=== PATIENT | female | born 1950 | race Caucasian/White ===

== ENCOUNTER → 2016-10-30 | Outpatient (CLI) | payer OTHER, BC ==
[~2016-10-30] MED LIST: ASPCH81X PO; ASPI81TA28 PO; CALC-393 PO; CMD4 PO; LPT10 PO; MAGN400T6 PO; METO25TA56 PO; MULT-506 PO; VTMD1000 PO; WARF2TAB PO; WARF4TAB PO
== END | disposition home or self-care (01) ==
LOC: C.PAPS 15:15
PROVIDERS: ATTEND Obstetrics & Gynecology
DX: Z12.4 Encounter for screening for malignant neoplasm of cervix (principal); N95.2 Postmenopausal atrophic vaginitis

== ENCOUNTER 2017-02-09 14:43 | Emergency (ER) | payer OTHER, BC ==
[~2017-02-09] VITALS: Ht 160 cm; Wt 112.0 kg
[~2017-02-09 14:43] MED LIST changes: -ASPI81TA28 PO; -LPT10 PO; -MULT-506 PO; -WARF2TAB PO; -WARF4TAB PO
[2017-02-09 14:53] VITALS: TEMP 37.5; Ht 160 cm; Wt 112.0 kg
[2017-02-09] MEDS ORDERED: ACETAMINOPHEN 500 MG TAB PO STA (15:18)
[2017-02-09] MEDS ORDERED: WARF2TAB PO (15:36)
[2017-02-09] MEDS ORDERED: LPT10 PO (15:36)
[2017-02-09] MEDS ORDERED: MULT-506 PO (15:36)
[2017-02-09] MEDS ORDERED: WARF4TAB PO ×2 (15:36)
[2017-02-09] MEDS ORDERED: ASPI81TA28 PO (15:36)
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
[2017-02-09 16:12] VITALS: BP 122/57; PULSE 69; O2SAT 95
== END 2017-02-09 16:15 | disposition home or self-care (01) ==
LOC: C.EDB 14:45 → C.EDD 16:15
DX: S09.90XA Unspecified injury of head, initial encounter (principal); V43.62XA Car passenger injured in collision with other type car in traffic accident, initial encounter; Z87.442 Personal history of urinary calculi; Z86.711 Personal history of pulmonary embolism; Z96.659 Presence of unspecified artificial knee joint; Z79.82 Long term (current) use of aspirin; Z79.01 Long term (current) use of anticoagulants; Z79.899 Other long term (current) drug therapy; Z80.9 Family history of malignant neoplasm, unspecified; Z84.1 Family history of disorders of kidney and ureter

== ENCOUNTER → 2017-05-24 | Outpatient (CLI) | payer OTHER, BC ==
[~2017-05-24] MED LIST changes: -ASPCH81X PO; +ASPI81TA28 PO; -CALC-393 PO; -CMD4 PO; +LPT10 PO; -MAGN400T6 PO; +MULT-506 PO; +OPTIRAY 320 IV PRN; +WARF2TAB PO; +WARF4TAB PO
--- NOTE | 2017-05-24 08:48 | DIAGNOSTIC IMAGING REPORT ---
CT ABD/PELVIS COMBO CLINICAL HISTORY: GROSS HEMATURIA, RT KIDNEY MASS COMPARISON STUDY: 06/19/2014 TECHNIQUE: Unenhanced images were obtained to the abdomen and pelvis. The patient was injected with 50 cc Optiray 320. After 5 minute delay, the patient was reimaged in a dynamic helical fashion during intravenous administration of additional 68 cc of Optiray 320 A dose lowering technique was utilized adhering to the principles of ALARA. CT DOSE: 2942.16 mGy.cm FINDINGS: Lower chest: There are mild bibasal atelectatic changes Liver: There is mild hepatic steatosis. No focal masses are visualized. Gallbladder: Cholelithiasis Spleen: Normal in size and attenuation. Pancreas: Unremarkable. Adrenal glands: Unremarkable. Kidneys: 3 left renal calculi are visualized, the largest of which measures 4 mm. No right renal calculi are visualized. No ureteral calculi are visualized. No bladder calculi are visualized. No collecting system filling defects are visualized. No ureteral filling defects are visualized. There is a small lower pole left renal cortical scar. There is a 37 mm mass arising from the anterior aspect the midpole the right kidney. This has a precontrast attenuation value of 19, and a postcontrast attenuation value of 27. This likely represents a hyperdense cyst. This lesion appears smaller than on the prior 2013 examination. There is an additional 28 mm mid upper pole right renal mass with a precontrast attenuation value of 18 postcontrast attenuation by 23. This is felt to represent a second hyperdense cyst. This second lesion contains mural calcification. This calcification was present on the prior study. This lesion is slightly larger than on the preceding study. Bowel: Postsurgical changes are present within the right colon. There are no transition zones indicate bowel obstruction. There is no acute diverticulitis. Peritoneum: There is no intraperitoneal free air or abdominal ascites. Vasculature: The abdominal aorta is normal in course and caliber. Adenopathy: None. Pelvic viscera: The uterus appears surgically absent. Skeletal structures: No destructive osseous lesions are seen. IMPRESSION: 1. Left-sided nephrolithiasis 2. Right renal hypodense lesions, most consistent with hyperdense cysts 3. No evidence of hydronephrosis. No ureteral or bladder calculi identified 4. No evidence of pathologic adenopathy Electronically signed by: Luis Chavez M.D. 05/24/2017 8:47 AM Dictated Date/Time: 05/24/2017 8:36 AM
== END | disposition home or self-care (01) ==
LOC: C.CTS 07:52
PROVIDERS: ATTEND Urology
DX: N28.89 Other specified disorders of kidney and ureter (principal); R31.0 Gross hematuria; N20.0 Calculus of kidney

== ENCOUNTER → 2018-05-20 | Outpatient (CLI) | payer OTHER, BC ==
[~2018-05-20] MED LIST changes: -OPTIRAY 320 IV PRN
--- NOTE | 2018-05-20 10:01 | DIAGNOSTIC IMAGING REPORT ---
KUB CLINICAL HISTORY: R31.0 Gross [id number] Renal cyst, acquired COMPARISON STUDY: 07/05/2015 FINDINGS: Poor definition of the kidneys due to extensive overlying bowel content. Left renal calcification is most likely unaltered. Right kidney showed no well-defined calcifications within limitations of overlying bowel content. Multiple pelvic vascular calcifications. IMPRESSION: Limited study due to extensive overlying bowel content. No significant change in the left renal calcification. The above report was generated using voice recognition software. It may contain grammatical, syntax or spelling errors. Electronically signed by: Adam Molina M.D. 05/20/2018 9:59 AM Dictated Date/Time: 05/20/2018 9:58 AM
--- NOTE | 2018-05-20 11:47 | DIAGNOSTIC IMAGING REPORT ---
ULTRASOUND KIDNEYS AND BLADDER CLINICAL HISTORY: Gross hematuria. Renal cyst. COMPARISON STUDY: Abdominal CT dated 05/24/2017. TECHNIQUE: Real-time, grayscale, and color flow sonography of the kidneys and bladder is performed. Images are reviewed in the transverse and longitudinal planes. FINDINGS: Kidneys: The kidneys are normal in size and echotexture. The right kidney measures 12.8 x 5.9 x 5.0 cm and the left kidney measures 10.9 x 5.9 x 5.3 cm. There is no hydronephrosis. Shadowing calculi in the left lower pole measure up to 11 mm. A complex lesion in the interpolar right kidney measures up to 3.0 cm. A cyst in the right upper pole measures up to 2.8 cm. No perinephric fluid is identified. Bladder: The bladder is normal in appearance. Bilateral ureteral jets were seen. Upper abdomen: Survey images of the right upper quadrant show evidence of hepatomegaly and hepatic steatosis. Numerous calcified gallstones are observed. IMPRESSION: 1. The kidneys are normal in size and without hydronephrosis. 2. A 3.0 cm complex lesion is again seen in the interpolar right kidney. This has not significantly changed from the 05/24/2017 CT scan and likely represents a complex cyst. 3. Nonobstructing left or a calculi. 4. Cholelithiasis and hepatic steatosis. Electronically signed by: Ahmet Arriaga M.D. 05/20/2018 11:45 AM Dictated Date/Time: 05/20/2018 11:09 AM
== END | disposition home or self-care (01) ==
LOC: C.ULTR 09:36
PROVIDERS: ATTEND Urology
DX: N28.9 Disorder of kidney and ureter, unspecified (principal); K80.20 Calculus of gallbladder without cholecystitis without obstruction; N20.0 Calculus of kidney

== ENCOUNTER → 2018-05-30 | Outpatient (CLI) | payer OTHER, BC | END | disposition home or self-care (01) | LOC: C.LABSPEC 15:23 | PROVIDERS: ATTEND Urology | DX: R31.0 Gross hematuria (principal) ==

== ENCOUNTER 2018-12-17 09:51 | Inpatient (IN) ==
--- NOTE | 2018-12-02 08:18 | History & Physical Report ---
Date of Service December 02, 2018 Date of Surgery: 12-17-18 Assessment & Plan (1) Painful total knee replacement, right: Risks and benefits of procedure discussed in detail today, patient would like to proceed with right knee arthrotomy and poly exchange @ [facility] on 12-17-18 as scheduled. will obtain cardiac clearance with Dr Lamb prior to surgery as well as obtain PATs at [facility]. Will resume Coumadin post-op, f/u 2 weeks post op for routine post-operative care and xray, sooner if having any problems. will make arrangements for HHPT at the time of discharge. will obtain ESR and CRP as part of pre op testing, no signs of infection or effusion so did not perform aspiration, would obtain intra op cultures if indicated. History of Present Illness Chief Complaint: painful right total knee replacement Primary Care Provider: Josi Chavez MD Ms Weber is a 68 year old female who complains of right knee pain, presents today for pre-op evaluation prior to right knee arthrotomy and poly exchange scheduled for [facility] on 12-17-18. She has history of right TKA by Dr Guerrero 12-30-14. she presents with increased pain on her right side, and describes it as constant, dull and aching. Her pain is aggravated by daily activities including walking, standing and using stairs. Her currenty pain is 2/10 and worst is 7/10. X-rays reveal no obvious loosening or aacute bony pathology. she denies any new injuries or trauma, does have history of Afib and history of PE. Allergies Allergy/AdvReac Type Severity Reaction Status Date / Time Iodinated Contrast- Oral and Allergy Unknown facial Verified 11/25/18 11:02 IV Dye flushing Home Medications Home Medications Medication Instructions Recorded Confirmed Type aspirin [Aspirin Low Dose] 81 mg PO QPM 07/07/18 11/25/18 History atorvastatin 10 mg PO QPM 07/07/18 11/25/18 History [place] [id number]-bor 1 tab PO BID 07/07/18 11/25/18 History cholecalciferol (vitamin D3) 2,000 unit PO BID 07/07/18 11/25/18 History cinnamon bark [Cinnamon] 1 tab PO QAM 07/07/18 11/25/18 History clopidogrel [Plavix] 75 mg PO QAM 07/07/18 11/25/18 History hydrocodone-acetaminophen 1 - 2 tab PO Q4H PRN #20 tab 07/07/18 11/25/18 Rx metoprolol tartrate 37.5 mg PO BID 07/07/18 11/25/18 History multivitamin 1 tab PO QAM 07/07/18 11/25/18 History warfarin 4 mg PO 6XWK 07/07/18 11/25/18 History warfarin 6.25 mg PO DAILY 07/07/18 11/25/18 History magnesium 250 mg PO HS 11/25/18 11/25/18 History Past Med/Surg History Medical History Kidney cyst, acquired (Chronic) right - Per patient they are "watching something" Atrial fibrillation History of kidney stones was removed at [place] Hx of breast cancer had radiation - no chemo 2009 Hx of cardiovascular stress test Failed - sent immediately for cath - [facility] Hx pulmonary embolism Loose body in knee Hardware in right knee loose Sleep apnea Surgical History History of knee replacement (Resolved) History of colon surgery Turmor removed - nonmalignant History of partial mastectomy of right breast History of total knee replacement right Hx of brain surgery For benign menigonoma Hx of cardiac catheterization last 11/2017 - had 3 stents - [facility] Hx of left cataract extraction Social History Current Living Situation: Alone Other Information That Helps Us Care for You: No Feels Safe at Home: Yes Safety Concerns: Feels Safe At This Time Smoking Status: Never smoker Hx Alcohol Use: No Hx Substance Use: No Beliefs That Will Affect Care: None Preferred Language: Indonesian Communication Ability: Effective Review of Systems All systems reviewed & are unremarkable except as noted in HPI & below Constitutional: no fever, no chills and no sweats Respiratory: no cough, no dyspnea and no dyspnea on exertion Cardiovascular: no chest pain, no dyspnea and no orthopnea Gastrointestinal: no nausea and no vomiting Integumentary: no rash and no lesions Physical Exam Vital Signs (Past 24 Hours): Ht: 5ft 4inches Wt: 111.1 kg BP: 112/80 Pulse: 78 Constitutional: WD/WN, vitals as above no acute distress Respiratory: normal respiratory effort, lungs clear to auscultation no respiratory distress and does not use accessory muscles Cardiovascular: irregularly irregular rhythm, no murmur noted. Gastrointestinal (Abdomen): normal bowel sounds, soft, nontender, no hepatosplenomegaly Musculoskeletal: Right lower leg: neurovascularly intact, calf soft non- tender, DP palpable, well healed surgical incision. Range of Motion 0/0/120, +1 laxity noted with valgus and varus stress but firm end points. straight leg raise without lag, good quad tone. no erythema, warmth or effusion noted. Results & Data Diagnostic Findings 3 views Right Knee from November 2018 reveal a cemented total knee replacement a rthroplasty in acceptable position and alignment. No evidence of loosening or loss of fixation is noted. The patella is tracking well. ASSESSMENT: status post cemented posterior stabilized total knee replacement arthroplasty.
--- NOTE | 2018-12-02 10:33 | PAT Medication Instructions ---
Medication Instructions Date of Service December 02, 2018 Home Medications Medication Instructions Recorded hydrocodone-acetaminophen 1 - 2 tab PO Q4H PRN #20 tab 07/07/18 aspirin [Aspirin Low Dose] 81 mg PO QPM atorvastatin 10 mg PO QPM [place] [id number]-bor 1 tab PO BID cholecalciferol (vitamin D3) 2,000 unit PO BID cinnamon bark [Cinnamon] 1 tab PO QAM clopidogrel [Plavix] 75 mg PO QAM hydrocodone-acetaminophen 1 - 2 tab PO Q4H PRN metoprolol tartrate 37.5 mg PO BID multivitamin 1 tab PO QAM warfarin 4 mg PO 6XWK warfarin 6.25 mg PO DAILY magnesium 250 mg PO HS ASK your prescriber and surgeon clopidogrel [Plavix] 75 mg PO QAM warfarin 4 mg PO 6XWK warfarin 6.25 mg PO DAILY Plavix must be held for at least 7 days prior to surgery for spinal anesthesia block (preferred method) STOP taking 2 weeks before surgery cinnamon bark [Cinnamon] 1 tab PO QAM DO NOT take the morning of surgery [place] [id number]-bor 1 tab PO BID cholecalciferol (vitamin D3) 2,000 unit PO BID multivitamin 1 tab PO QAM Take morning of surgery With a small sip of water, OTHERWISE NOTHING TO EAT OR DRINK AFTER MIDNIGHT: hydrocodone-acetaminophen 1 - 2 tab PO Q4H PRN (if needed, may be taken up to four hours before surgery) metoprolol tartrate 37.5 mg PO BID Take evening before surgery aspirin [Aspirin Low Dose] 81 mg PO QPM atorvastatin 10 mg PO QPM [place] [id number]-[id number]-bor 1 tab PO BID cholecalciferol (vitamin D3) 2,000 unit PO BID hydrocodone-acetaminophen 1 - 2 tab PO Q4H PRN (if needed) metoprolol tartrate 37.5 mg PO BID magnesium 250 mg PO HS Other Notes If you have any questions please call us at [phone] or [phone] or [phone] or [phone]
--- NOTE | 2018-12-02 11:24 | Anesthesiology Consultation ---
Date of Service December 02, 2018 Assessment & Plan (1) Encounter for pre-operative examination: Plan: CHECK PT/INR/PTT STAT AM DOS Cardio Clearance (Zainab) 12/05/18: "The patient and I did discuss her cardiac condition and potential cardiac risks. She has had no recent anginal symptoms and no signs or symptoms of heart failure...She should receive her Meto prolol Tartrate the morning of surgery with a sip of water. She should hold her Coumadin and Plavix for at least 5 days prior to surgery." Surgeon's office made aware that Plavix needs to be held for at least 7 days for SAB. They will contact cardiology to see if OK. Chart Review Chart Review: Acceptable Risk for Surgery and Patient seen in Pre Admission Testing Teaching & Discussion Instructed NPO after midnight before surgery, except medications with 15 cc of water. Medication instructions provided according to the PAT guidelines. Warfarin and Plavix instructions per surgeon and cardiology. Patient aware Plavix must be held x 7 days for spinal block. History Surgery Operation Date: 12/17/18 11:25 Proposed Procedures p Right Total Knee Poly Exchange, Possible Constrained Poly - Yeyo Harris DO Height/Weight Height: 5 ft 4 in Weight: 113.2 kg Allergies Allergy/AdvReac Type Severity Reaction Status Date / Time Iodinated Contrast- Oral and Allergy Unknown facial Verified 11/25/18 11:02 IV Dye flushing Medications Home Medications Medication Instructions Recorded Confirmed Last Taken aspirin [Aspirin Low Dose] 81 mg PO QPM 07/07/18 11/25/18 07/07/18 atorvastatin 10 mg PO QPM 07/07/18 11/25/18 07/06/18 [place] [id number] 1 tab PO BID 07/07/18 11/25/18 07/06/18 cholecalciferol (vitamin D3) 2,000 unit PO BID 07/07/18 11/25/18 07/06/18 cinnamon bark [Cinnamon] 1 tab PO QAM 07/07/18 11/25/18 07/06/18 clopidogrel [Plavix] 75 mg PO QAM 07/07/18 11/25/18 07/07/18 hydrocodone-acetaminophen 1 - 2 tab PO Q4H PRN #20 tab 07/07/18 11/25/18 Unknown metoprolol tartrate 37.5 mg PO BID 07/07/18 11/25/18 07/06/18 multivitamin 1 tab PO QAM 07/07/18 11/25/18 07/06/18 warfarin 4 mg PO [id number] 07/07/18 11/25/18 07/06/18 warfarin 6.25 mg PO DAILY 07/07/18 11/25/18 07/07/18 magnesium 250 mg PO HS 11/25/18 11/25/18 Unknown Past Medical History Medical History Kidney cyst, acquired (Chronic) right - Per pt under observation. Atrial fibrillation CAD (coronary artery disease) Pt failed stress test done pre-op and subsequently had three stents placed. H/O: hysterectomy History of kidney stones was removed at [facility] Hx of breast cancer had radiation - no chemo 2009 Hx of cardiovascular stress test Failed - sent immediately for cath - [facility] Hx pulmonary embolism 2007. Pt had hemicolectomy, had post-op AFib and subsequent PE. Loose body in knee Hardware in right knee loose Sleep apnea Uses CPAP HS Past Surgical History Surgical History History of knee replacement (Resolved) LEFT History of colon surgery Turmor removed - nonmalignant History of partial mastectomy of right breast History of total knee replacement right Hx of brain surgery For benign menigonoma Hx of cardiac catheterization last 11/2017 - had 3 stents - [facility]. Hx of left cataract extraction Past Anesthesia History No Hx of Anesthesia Complications and No Family Hx of Anesthesia Complications History of PONV No Motion Sickness Screening History of Motion Sickness: No Social History Smoking Status: Never smoker Do You Dip or Chew Tobacco: No Hx Alcohol Use: No Hx Substance Use: No Exercise / Class Metabolic Activity III < 4 Walking/Shop/Light housework (Denies CP or SOB with stairs, but limited by knee pain.) Review of Systems Pt denies any recent chest pain, shortness of breath, palpitations, cough, fever or URI. Currently being treated for UTI. Physical Exam Vital Signs BP: 134/81 P: 58bpm SPO2: 97% RA T: 98.0 R: 16 ENMT Mouth: + dental restorations (few crowns) and + small oral opening; no chipped teeth and no loose teeth Thyromental Distance: < 3.5 Finger Breadths (2? Difficult to palpate due to thick neck) Mallampati Class: IV Neck + short neck and + thick neck; neck extension not limited Respiratory normal respiratory effort Auscultation: lungs clear to auscultation bilaterally Cardiovascular Rate/Rhythm: regular rhythm and + bradycardic Heart Sounds: no murmur Vessels: no carotid bruit Extremities: no edema Testing Electrocardiogram Date: 12/02/18 Findings: + NSR @ (60) Chest X-Ray Date: 12/02/18 FINDINGS: Mild stable cardiomegaly. Diaphragms smooth. Lungs are clear. Stable degenerative changes of the thoracic spine. IMPRESSION: No acute process. Echocardiogram Date: 10/16/17 EF: 50-55% Normal left ventricular wall motion and ejection fraction. Mild left ventricular hypertrophy. Sclerotic changes involving both the aortic and mitral valve leaflets. Mild mitral and tricuspid valvular insufficiency. Somewhat limited study due to limited acoustic window. Stress Test Date: 10/17/17 Type: nuclear Abnormal myocardial perfusion SPECT images with evidence for pharmacologically- induced anterolateral ischemia. Normal left ventricular wall motion and thickening. Normal left ventricular ejection fraction post stress at 73% *pt had subsequent cardiac cath with EUSEBIO x 3 to LAD placed. Laboratory Results 12/02/18 11:10 12/02/18 11:10 Blood Type B Positive 12/02/18 11:10 Antibody Screen NEGATIVE 12/02/18 11:10 PT 23.6 Seconds (9.0-12.0) H 12/02/18 11:10 INR 2.5 (0.9-1.1) H 12/02/18 11:10 APTT 38.1 Seconds (21.0-31.0) H 12/02/18 11:10 Hemoglobin A1c 6.2 % (4.5-5.6) H 12/02/18 11:10 Urine Color [place] 12/02/18 11:10 Urine Appearance Clear (Clear) 12/02/18 11:10 Urine pH 7.0 (4.5-7.5) 12/02/18 11:10 Ur Specific [place] 1.012 (1.000-1.030) 12/02/18 11:10 Urine Protein Negative (Negative) 12/02/18 11:10 Urine Glucose (UA) Negative (Negative) 12/02/18 11:10 Urine Ketones Negative (Negative) 12/02/18 11:10 Urine Nitrite Negative (Negative) 12/02/18 11:10 Ur Leukocyte Esterase Trace (Negative) H 12/02/18 11:10 Urine WBC (Auto) 5-10 /hpf (0-5) H 12/02/18 11:10 Urine RBC (Auto) >30 /hpf (0-4) H 12/02/18 11:10 U Hyaline Cast (Auto) 1-5 /lpf (0-5) 12/02/18 11:10 U Epithel Cells (Auto) 10-20 /lpf (0-5) H 12/02/18 11:10 Urine Bacteria (Auto) Negative (Negative) 12/02/18 11:10
--- NOTE | 2018-12-02 11:55 | XRay Report ---
XR chest Pre-admission PA/Lat CLINICAL HISTORY: pat preoperative COMPARISON STUDY: 07/25/2015 FINDINGS: Mild stable cardiomegaly. Diaphragms smooth. Lungs are clear. Stable degenerative changes o f the thoracic spine. IMPRESSION: No acute process. The above report was generated using voice recognition software. It may contain grammatical, syntax or spelling errors. Electronically signed by: Adam Molina M.D. 12/02/2018 11:53 AM
[2018-12-02 11:57] LABS: Appearance Urine Clear (Clear); Bacteria Urine Automated Negative (Negative); Basophils # (auto) 0.04 K/uL (0-0.2); Basophils % (auto) 0.5 %; Bilirubin Urine Negative (Negative); Blood Urine 3+ (Negative); Color Urine Orange; Eosinophils # (auto) 0.22 K/uL (0-0.5); Eosinophils % (auto) 2.8 %; Glucose Urine UA Negative (Negative); Hematocrit (blood only) 42.2 % (37-47); Hemoglobin 13.7 g/dL (12.0-16.0); Immature Granulocytes # (auto) 0.04 K/uL (0.00-0.02); Immature Granulocytes % (auto) 0.5 %; Ketones Urine Negative (Negative); Leukocyte Esterase Urine Trace (Negative); Lymphocytes # (auto) 1.52 K/uL (1.2-3.4); Lymphocytes % (auto) 19.6 %; Mean Corpuscular Hgb Conc 32.5 g/dL (32-36); Mean Corpuscular Volume 85.3 fL (80-100); Mean Platelet Volume 9.4 fL (7.4-10.4); Neutrophils # (auto) 5.25 K/uL (1.4-6.5); Neutrophils % (auto) 67.6 %; Nitrite Urine Negative (Negative); Platelet Count 269 K/uL (130-400); Protein Urine Negative (Negative); RBC Urine Automated >30 /hpf (0-4); RDW Coefficient of Variation 14.3 % (11.5-14.5); RDW Standard Deviation 44.1 fL (36.4-46.3); Red Blood Count 4.95 M/uL (4.2-5.4); Specific Gravity Urine 1.012 (1.000-1.030); Urobilinogen Urine Negative (Negative); White Blood Count 7.77 K/uL (4.8-10.8)
[2018-12-02 11:59] LABS: Albumin Level 3.9 gm/dl (3.4-5.0); BUN Creatinine Ratio 20.2 (10-20); Blood Urea Nitrogen 14 mg/dl (7-18); C Reactive Protein < 0.29 mg/dl (0-0.29); Calcium 9.5 mg/dl (8.5-10.1); Carbon Dioxide 27 mmol/L (21-32); Chloride 106 mmol/L (98-107); Creatinine Clr Calc Pharmacy 93.5 ml/min; Est GFR (African American) 102.5; Est GFR (Non-African American) 88.4; Glucose 101 mg/dl (70-99); Sodium 140 mmol/L (136-145)
[2018-12-02 12:02] LABS: INR 2.5 (0.9-1.1); Partial Thromboplastin Ratio 1.4; Partial Thromboplastin Time 38.1 Seconds (21.0-31.0); Prothrombin Time 23.6 Seconds (9.0-12.0)
[2018-12-02 12:39] LABS: Estimated Average Glucose 131 mg/dl; Hemoglobin A1C 6.2 % (4.5-5.6)
[~2018-12-17 09:51] MED LIST changes: +ACETAMINOPHEN 500 MG TAB PO SCH; -ASPI81TA28 PO; +BUPIVACAINE 0.5 % 5 MG/1 ML PF 10ML VIAL ONE; +CEFAZOLIN 2000MG 2,000 MG/15 ML SYR IV SCH; +CeleBREX 200 MG CAP PO SCH; +FAMOTIDINE 20 MG TAB PO SCH; +GABAPENTIN 300 MG PO SCH; -LPT10 PO; +LR 500ML BOLUS, THEN 15ML/HR IV SCH; -METO25TA56 PO; -MULT-506 PO; +ROPIVACAINE 0.5% 5 MG/ML 30 ML VIAL ONE; +ROPIVACAINE 0.5% HCL/PF 150 MG, BUPIVACAINE 0.5% MPF 30 ML, EPINEPHrine 30MG/30ML (OR U... INFIL SCH; +TRANEXAMIC ACID 1,000 MG **IV Pre-op IV SCH; -VTMD1000 PO; -WARF2TAB PO; -WARF4TAB PO; +dexAMETHasone 4 MG TAB PO SCH
[2018-12-17] MEDS ORDERED: PROPOFOL IV EMULSION 10 MG/ML 20 ML VIAL IV ONE ×3 (10:16→13:02)
[2018-12-17] MEDS ORDERED: MIDAZOLAM HCL 1 MG/ML 2ML VIAL ONE (10:16)
[2018-12-17] MEDS ORDERED: LIDOCAINE HCL 2% 2 ML VIAL/AMP(20MG/ML) INFIL ONE (10:16)
--- NOTE | 2018-12-17 11:03 | History & Physical Bridge Note ---
Date of Service December 17, 2018 History & Physical Bridge Note I have examined the patient, reviewed the History & Physical and in the interval since the performance of the History & Physical I have noted the following changes of clinical significance: no changes noted
[2018-12-17 11:16] LABS: INR 1.1 (0.9-1.1); Partial Thromboplastin Ratio 0.9; Prothrombin Time 10.9 Seconds (9.0-12.0)
[2018-12-17] MEDS ORDERED: BACITRACIN INJ 50,000 UNIT VIAL ONE (11:44)
[2018-12-17] MEDS ORDERED: ORTHO JOINT ANESTHETIC ONE (11:44)
[2018-12-17] MEDS ORDERED: POVIDONE-IODINE OP SOLN 30 ML BTL ONE (11:44)
[2018-12-17] MEDS ORDERED: PHENYLEPHRINE 100MCG/ML 5ML SYR IV PRN (12:22)
[2018-12-17] MEDS ORDERED: ePHEDrine sulfate 50 MG/ML AMP IV PRN (12:22)
[2018-12-17] MEDS ORDERED: HYDROmorphone INJ 1 MG/ML SYRINGE IV PRN ×2 (12:22→14:07)
[2018-12-17] MEDS ORDERED: ONDANSETRON INJ 2 MG/ML 2 ML VIAL IV PRN ×2 (12:22→14:07)
[2018-12-17] MEDS ORDERED: ATROPINE SULFATE 0.1 MG/ML 10ML SYR IV PRN (12:22)
[2018-12-17] MEDS ORDERED: KETOROLAC 30 MG/ML VIAL IV PRN (12:22)
--- NOTE | 2018-12-17 13:14 | Operative Report ---
Post Operative Report Pre & Post Diagnosis Operation Date: 12/17/18 12:35 Pre-Op Diagnosis: Ligamentous laxity right total knee arthroplasty medial lateral Post-Op Diagnosis: Ligamentous laxity right total knee arthroplasty medial lateral collateral ligaments Procedure Operation Date: 12/17/18 12:35 Actual Procedures p Right Total Knee Poly Exchange, up sized to a size 12 x 3 4 (Right) - Yeyo Harris DO Surgeon Yeyo Harris DO Machine Hose Cutter Adam Balderrama Estimated Blood Loss 5 Findings Consistent with Post-Op Diagnosis Patient presents after 4 years prior having undergone right total knee arthroplasty had a fall sustained laxity to her medial collateral ligament and presents with ongoing complaints of pain with laxity of her MCL the knee ligament exam is now consistent with she had a dislocation episode the other i mplant the rest of the implants are otherwise well cemented no evidence of infection is noted sed rate C-reactive protein were all within normal limits no intraoperative findings of infection were noted clearly was ligamentous laxity Specimens Poly- Drains Medium bore Hemovac Complications none Disposition Accompanied Patient To Recovery: No Disposition: Recovery Room Indications Patient presents after failed attempted conservative management with medial lateral collateral ligament laxity of her right total knee arthroplasty after having patient had laxity in extension and flexion mid flexion was not present prior to this patient was braced conservative management for a year continue to have complaints of pain socially presents for upsizing polyethylene the above findings are noted at the time of surgery Description of Procedure After proper prepping draping the right lower extremity incision made the incision to the region of the central mechanism medial parapatellar incision made patella was subluxed lateralward no evidence of infection was noted the a mild medial lateral synovectomy was performed the tibial component that was evaluated no loosening was noted the femoral component was evaluated no loosening was noted the patellar component was evaluated no loosening was noted the poly-was removed the poly-was up sized to a size 12 gave excellent stability in flexion extension and mid flexion stability was re-created wound was irrigated with copious muscle sterile saline solution the following poly-was then placed into the wound and was seated under direct visualization was irrigated with copious muscle sterile saline solution medial parapatellar was closed #1 Vicryl subcuticular 2-0 Vicryl skin was closed with running subcuticular suture sterile compressive dressing was placed patient placed in the recovery in stable condition is operative or dictated by Steven please note Adam Balderrama PA was necessary prepping draping retraction wound closure the fascia subcu and skin was necessary for the case I attest to the content of the Intraoperative Record and any orders documented therein. Any exceptions are noted below.
[2018-12-17] MEDS ORDERED: BISACODYL 10 MG SUPP PR PRN (14:07)
[2018-12-17] MEDS ORDERED: NALOXONE HCL 0.4 MG/1 ML VIAL/CARP IV PRN (14:07)
[2018-12-17] MEDS ORDERED: OXYCODONE HCL IR 5 MG TAB (IMMEDIATE RELEASE) PO PRN (14:07)
[2018-12-17] MEDS ORDERED: METOCLOPRAMIDE HCL INJ 5 MG/ML 2 ML VIAL IV PRN (14:07)
[2018-12-17] MEDS ORDERED: MAGNESIUM HYDROXIDE SUSP 30 ML UDC PO PRN (14:07)
--- NOTE | 2018-12-17 14:20 | Anesthesiology Progress Note ---
Date of Service December 17, 2018 Anesthesia Post Procedure Vital Signs Vital Signs: Temp Pulse Pulse Resp BP Pulse Ox 12/17/18 14:10 63 18 130/71 99 12/17/18 14:00 71 18 127/79 99 12/17/18 13:50 68 18 124/73 124 H 12/17/18 13:44 36.6 C 73 18 137/67 97 12/17/18 10:19 37 C 60 18 145/82 H 96 Notes Mental Status: alert / awake / arousable Patient Amnestic to Procedure: Yes Nausea / Vomiting: adequately controlled Pain: adequately controlled Airway Patency, RR, SpO2: stable & adequate BP & HR: stable & adequate Hydration State: stable & adequate Neuraxial Anesthesia: was administered and sensory block is resolving Anesthetic Complications: no major complications apparent
--- NOTE | 2018-12-17 14:53 | XRay Report ---
XR knee RT 2V routine CLINICAL HISTORY: Surgical Post Op COMPARISON: 07/07/2018 DISCUSSION: Anatomic post total right knee arthroplasty. Good contact during prosthetic and underlyin g bone. Expected postoperative soft tissue change IMPRESSION: Anatomic alignment post total right knee arthroplasty. The above report was generated using voice recognition software. It may contain grammatical, syntax or spelling errors. Electronically signed by: Adam Molina M.D. 12/17/2018 2:51 PM
[2018-12-17] MEDS ORDERED: SODIUM CHLORIDE 0.9% 1000ML 1,000 ML IV SCH (15:15)
[2018-12-17] MEDS: ACETAMINOPHEN 500 MG TAB PO SCH ×2 (17:38→21:52)
[2018-12-17] MEDS: ORTHO WARFARIN NOMOGRAM SCH (17:38)
[2018-12-17] MEDS ORDERED: WARFARIN SOD 5 MG TAB PO SCH (19:00)
[2018-12-17] MEDS: CEFAZOLIN 2000MG 2,000 MG/15 ML SYR IV SCH (19:14)
[2018-12-17] MEDS ORDERED: [UNRECOGNIZED DRUG - OTHER] PO SCH (21:00)
[2018-12-17] MEDS ORDERED: ASPIRIN 81 MG ECTAB PO SCH (21:00)
[2018-12-17] MEDS ORDERED: ATORVASTATIN 10 MG TAB PO SCH (21:00)
[2018-12-17] MEDS ORDERED: SENNA 8.6 MG TAB PO SCH (21:00)
[2018-12-17] MEDS: METOPROLOL TARTRATE 25 MG TAB PO SCH (21:50)
[2018-12-17] MEDS: CHOLECALCIFEROL 1,000 UNITS TAB PO SCH (21:52)
[2018-12-17] MEDS: DOCUSATE SODIUM 100 MG CAP PO SCH (21:52)
[2018-12-17] MEDS: [UNRECOGNIZED DRUG - REMARK] SCH ×2 (22:51→22:52)
[2018-12-18] MEDS: CEFAZOLIN 2000MG 2,000 MG/15 ML SYR IV SCH (03:53)
[2018-12-18] MEDS: ACETAMINOPHEN 500 MG TAB PO SCH ×2 (05:30→14:31)
[2018-12-18] MEDS: METOPROLOL TARTRATE 25 MG TAB PO SCH ×2 (07:31→07:36)
[2018-12-18] MEDS: DOCUSATE SODIUM 100 MG CAP PO SCH (07:32)
[2018-12-18] MEDS: CHOLECALCIFEROL 1,000 UNITS TAB PO SCH (07:33)
[2018-12-18 08:15] LABS: Hematocrit (blood only) 37.7 % (37-47); Hemoglobin 12.3 g/dL (12.0-16.0); Mean Corpuscular Hgb Conc 32.6 g/dL (32-36); Mean Corpuscular Volume 85.3 fL (80-100); Mean Platelet Volume 9.5 fL (7.4-10.4); Platelet Count 238 K/uL (130-400); RDW Coefficient of Variation 14.1 % (11.5-14.5); RDW Standard Deviation 44.2 fL (36.4-46.3); Red Blood Count 4.42 M/uL (4.2-5.4); White Blood Count 14.42 K/uL (4.8-10.8)
--- NOTE | 2018-12-18 08:40 | Progress Note ---
DATE: 12/18/2018 SUBJECTIVE: The patient is a 68-year-old white female who is postop day #1 status post right polyethylene bearing change by Dr. Harris. She states that currently her pain is fairly well controlled and she has no other complaints at this time. She denies shortness of breath, chest pain or lightheadedness. She is hoping to have home health services come to the house to work with her for her PT. OBJECTIVE: Dressings are clean, dry and intact. Hemovac was present and put out approximately 50 mL overnight for the last shift. She does have a EVER dressing which is functioning. Calves are soft, nontender. Neurovascular is intact and toes were mobile. Hgb 12.3 ASSESSMENT: Polyethylene bearing change, right TKA postop day #1. PLAN: PT, OT protocols today with weightbearing as tolerated and range of motion protocol. Plans for discontinuing the Hemovac drain today and continue DVT prophylaxis with aspirin, SCDs and ELISEO hose. Continue current pain management. We will plan to recheck the patient later this afternoon to see how she is progressing with her physical therapy for possible discharge to home. Currently, morning labs are pending. MTDD
[2018-12-18 08:48] LABS: BUN Creatinine Ratio 25.2 (10-20); Calcium 9.4 mg/dl (8.5-10.1); Creatinine Clr Calc Pharmacy 78.6 ml/min; Est GFR (African American) 83.4; Est GFR (Non-African American) 71.9; Potassium 3.9 mmol/L (3.5-5.1)
[2018-12-18] MEDS ORDERED: CLOPIDOGREL BISULFATE 75 MG TAB PO SCH (09:00)
[2018-12-18] MEDS ORDERED: MULTIVITAMIN TAB PO SCH (09:00)
--- NOTE | 2018-12-18 11:14 | Anesthesiology Progress Note ---
Date of Service December 18, 2018 Anesthesia Post Procedure Vital Signs Vital Signs: Temp Pulse Pulse Resp BP Pulse Ox 12/18/18 11:01 36.6 C 61 18 156/76 H 96 12/18/18 07:31 36.4 C L 57 L 18 118/71 95 12/18/18 02:42 36.5 C 63 20 106/78 98 12/17/18 23:28 36.5 C 61 20 119/72 94 12/17/18 19:56 36.8 C 66 16 121/72 95 12/17/18 17:44 69 16 136/77 97 12/17/18 16:47 36.7 C 70 16 140/92 97 12/17/18 15:50 36.4 C L 65 16 136/74 97 12/17/18 15:12 63 16 131/77 98 12/17/18 14:45 36.7 C 64 16 123/75 98 12/17/18 14:33 36.6 C 12/17/18 14:20 36.6 C 67 18 126/74 99 12/17/18 14:10 63 18 130/71 99 12/17/18 14:00 71 18 127/79 99 12/17/18 13:50 68 18 124/73 124 H 12/17/18 13:44 36.6 C 73 18 137/67 97 Notes Mental Status: alert / awake / arousable and participated in evaluation Patient Amnestic to Procedure: Yes Nausea / Vomiting: adequately controlled Pain: adequately controlled Airway Patency, RR, SpO2: stable & adequate BP & HR: stable & adequate Hydration State: stable & adequate Neuraxial Anesthesia: was administered and sensory block resolved Anesthetic Complications: no major complications apparent
[2018-12-18] MEDS: ORTHO WARFARIN NOMOGRAM SCH (13:37)
[2018-12-18 14:04] LABS: Hemoglobin 12.5 g/dL (12.0-16.0); Mean Corpuscular Volume 85.6 fL (80-100); Mean Platelet Volume 9.5 fL (7.4-10.4); Platelet Count 260 K/uL (130-400); RDW Coefficient of Variation 14.2 % (11.5-14.5); RDW Standard Deviation 44.1 fL (36.4-46.3); Red Blood Count 4.44 M/uL (4.2-5.4); White Blood Count 14.06 K/uL (4.8-10.8)
[2018-12-18 14:16] LABS: INR 1.1 (0.9-1.1); Prothrombin Time 10.9 Seconds (9.0-12.0)
[2018-12-18 14:21] LABS: Mean Corpuscular Hgb Conc 32.9 g/dL (32-36)
[2018-12-18] MEDS ORDERED: WARFARIN SOD 5 MG TAB PO SCH (16:00)
--- NOTE | 2018-12-18 16:24 | Discharge Summary ---
Date of Service Date of Discharge: December 18, 2018 Date of Admission: 12/17/18 Admission HPI Per Admitting Provider Ms Weber is a 68 year old female who complains of right knee pain, presents today for pre-op evaluation prior to right knee arthrotomy and poly exchange scheduled for [facility] on 12-17-18. She has history of right TKA by Dr Guerrero 12-30-14. she presents with increased pain on her right side, and describes it as constant, dull and aching. Her pain is aggravated by daily activities including walking, standing and using stairs. Her currenty pain is 2/10 and worst is 7/10. X-rays reveal no obvious loosening or aacute bony pathology. she denies any new injuries or trauma, does have history of Afib and history of PE. Principal Diagnosis Ligamentous laxity right total knee arthroplasty medial lateral Discharge Exam Constitutional WD/WN, vitals as above no acute distress Musculoskeletal dressing clean and dry, calf SNT, DP +2, NVDI. Discharge Data Allergies Allergy/AdvReac Type Severity Reaction Status Date / Time Iodinated Contrast- Oral and AdvReac Mild facial Verified 12/17/18 10:15 IV Dye flushing Consultations 12/17/18 14:07 Consult Case Management - Discharge Planning Routine Procedures Performed Operation Date: 12/17/18 12:35 Actual Procedures p Right Total Knee Poly Exchange(Right) - Yeyo Harris DO Ordered Studies 12/17/18 05:00 US - OR guided needle placemen Routine Hospital Course (1) Painful total knee replacement, right: Patient was a same day admission after undergoing a successful poly exchange of her right TKA. she tolerated the procedure well. Post-operatively, her activity was progressed and well tolerated. Please refer to daily progress notes and PT notes for complete details. After exam on 12/18/18, patient felt to be stable for discharge home with PT. Patient will f/u in the office in 2 weeks for further evaluation including x-rays and incision check, sooner if having any issues or concerns. Below are pertinent labs/studies during their hospital stay: Laboratory Results WBC 14.06 K/uL (4.8-10.8) H 12/18/18 13:53 RBC 4.44 M/uL (4.2-5.4) 12/18/18 13:53 Hgb 12.5 g/dL (12.0-16.0) 12/18/18 13:53 Hct 38.0 % (37-47) 12/18/18 13:53 MCV 85.6 fL (80-100) 12/18/18 13:53 MCH 28.2 pg (25-34) 12/18/18 13:53 MCHC 32.9 g/dL (32-36) 12/18/18 13:53 RDW Std Deviation 44.1 fL (36.4-46.3) 12/18/18 13:53 RDW Coeff of Clarisse 14.2 % (11.5-14.5) 12/18/18 13:53 Plt Count 260 K/uL (130-400) 12/18/18 13:53 MPV 9.5 fL (7.4-10.4) 12/18/18 13:53 Immature Gran % (Auto) 0.5 % 12/02/18 11:10 Neut % (Auto) 67.6 % 12/02/18 11:10 Lymph % (Auto) 19.6 % 12/02/18 11:10 [place] % (Auto) 9.0 % 12/02/18 11:10 Eos % (Auto) 2.8 % 12/02/18 11:10 Baso % (Auto) 0.5 % 12/02/18 11:10 Immature Gran # (Auto) 0.04 K/uL (0.00-0.02) H 12/02/18 11:10 Neut # (Auto) 5.25 K/uL (1.4-6.5) 12/02/18 11:10 Lymph # (Auto) 1.52 K/uL (1.2-3.4) 12/02/18 11:10 [place] # (Auto) 0.70 K/uL (0.11-0.59) H 12/02/18 11:10 Eos # (Auto) 0.22 K/uL (0-0.5) 12/02/18 11:10 Baso # (Auto) 0.04 K/uL (0-0.2) 12/02/18 11:10 ESR 23 mm/hr (0-21) H 12/02/18 11:10 PT 10.9 Seconds (9.0-12.0) 12/18/18 13:53 INR 1.1 (0.9-1.1) 12/18/18 13:53 APTT 24.0 Seconds (21.0-31.0) 12/17/18 10:40 PTT Ratio 0.9 12/17/18 10:40 Sodium 139 mmol/L (136-145) 12/18/18 07:48 Potassium 3.9 mmol/L (3.5-5.1) 12/18/18 07:48 Chloride 107 mmol/L (98-107) 12/18/18 07:48 Carbon Dioxide 24 mmol/L (21-32) 12/18/18 07:48 Anion Gap 8.0 (3-11) 12/18/18 07:48 BUN 21 mg/dl (7-18) H 12/18/18 07:48 Creatinine 0.83 mg/dl (0.6-1.2) 12/18/18 07:48 Est Cr Clr Drug Dosing 78.6 ml/min 12/18/18 07:48 Est GFR ( Amer) 83.4 12/18/18 07:48 Est GFR (Non-Af Amer) 71.9 12/18/18 07:48 BUN/Creatinine Ratio 25.2 (10-20) H 12/18/18 07:48 Glucose 142 mg/dl (70-99) H 12/18/18 07:48 Estimat Average Glucose 131 mg/dl 12/02/18 11:10 Hemoglobin A1c 6.2 % (4.5-5.6) H 12/02/18 11:10 Calcium 9.4 mg/dl (8.5-10.1) 12/18/18 07:48 C-Reactive Protein < 0.29 mg/dl (0-0.29) 12/02/18 11:10 Albumin 3.9 gm/dl (3.4-5.0) 12/02/18 11:10 Urine Color [place] 12/02/18 11:10 Urine Appearance Clear (Clear) 12/02/18 11:10 Urine pH 7.0 (4.5-7.5) 12/02/18 11:10 Ur Specific [place] 1.012 (1.000-1.030) 12/02/18 11:10 Urine Protein Negative (Negative) 12/02/18 11:10 Urine Glucose (UA) Negative (Negative) 12/02/18 11:10 Urine Ketones Negative (Negative) 12/02/18 11:10 Urine Blood 3+ (Negative) H 12/02/18 11:10 Urine Nitrite Negative (Negative) 12/02/18 11:10 Urine Bilirubin Negative (Negative) 12/02/18 11:10 Urine Urobilinogen Negative (Negative) 12/02/18 11:10 Ur Leukocyte Esterase Trace (Negative) H 12/02/18 11:10 Urine WBC (Auto) 5-10 /hpf (0-5) H 12/02/18 11:10 Urine RBC (Auto) >30 /hpf (0-4) H 12/02/18 11:10 U Hyaline Cast (Auto) 1-5 /lpf (0-5) 12/02/18 11:10 U Epithel Cells (Auto) 10-20 /lpf (0-5) H 12/02/18 11:10 Urine Bacteria (Auto) Negative (Negative) 12/02/18 11:10 Blood Type B Positive 12/02/18 11:10 Antibody Screen NEGATIVE 12/02/18 11:10 Total Time Total Time Spent Total Time Spent (In Minutes): 20 Total Time Includes: Examination of the Patient, Discharge Planning and Medication Reconciliation Discharge Plan Discharge Items Patient Disposition: Home - Home Health Services Reason For Visit: Mechanical Loosening of Internal Right Knee Prosth Discharge Diagnosis: Mechanical Loosening of Right TKA prosthesis Discharge Goals: Decrease discomfort and Improve function Activity: Per 'Additional Instructions' section Weightbearing: Right weightbearing Weightbearing Comment: as tolerated with walker Non-emergency contact: Surgeon Call non-emergency contact if: your pain is not controlled, your temperature is above 101.5, your wound has increased redness and your wound has increased drainage Follow-up/Referrals: Josi Chavez MD [Primary Care Provider] - Diet: Regular Addtl Provider Instructions: ACTIVITY RECOMMENDATIONS: SELF CARE INSTRUCTIONS AFTER POLYETHYLENE BEARING CHANGE OF TKA A. You may need to continue a physical therapy program after discharge from the hospital. There are several options available to you. Your doctor will assist you in selecting the best one for you. 1. An out-patient facility 2 to 3 times a week for therapy or home therapy. 2. Continue working on all exercises taught to you in the hospital. Your goals should be to increase bending of your knee to 90 degrees and beyond and to fully straighten your knee. B. You may progress at your own pace from walking with a walker or crutches to a cane; then to no assistive devices. C. Make walking a part of your daily routine. Be up as much as comfortable with rest periods throughout the day. Rest with leg elevation is very important. Use the ice wrap frequently for the first 3-4 weeks. D. There are no restrictions on activities. You may ride in a car, shop, participate in supervisor bridges and buildings and all social activities. E. Wear the long elastic stockings (ELISEO hose) 20 hours a day for 2 weeks after surgery. They can be removed several times a day for laundering and for a bath. F. You may shower, no tub baths until cleared by your doctor. SPECIAL CARE INSTRUCTIONS: CONTINUE TO HAVE YOUR INR CHECKED REGULARLY IN THE FIRST FEW WEEKS OF YOUR SURGERY. REPORT YOUR RESULTS TO YOUR PRIMARY CARE DOCTOR OR YOUR BANDING MACHINE OPERATOR. VERY IMPORTANT TO READ AND REVIEW A. There are a few signs you need to watch for after you are home. Call [facility] if you notice any of the followin. Increased severe knee pain. Some pain is expected especially when you exercise. 2. Increased swelling in your leg or knee; pain or swelling of the calf muscle in either lower leg. 3. Any fluid drainage from the incision. 4. Shortness of breath or chest pain. B. Please call [facility] at if you have any concerns or questions about your operation or recovery. The doctor or his nurse will return your call promptly. C. You must take antibiotics before dental work, bladder, bowel or other surgery. Your doctor will provide you with a permanent care to carry describing this precaution. IMPORTANT: * REMEMBER TO TAKE ASPIRIN, 81 MG, TWICE DAILY FOR 4 WEEKS UNLESS OTHERWISE DIRECTED. THIS IS YOUR BLOOD THINNER. * HIGH RISK PATIENTS MAY BE PRESCRIBED A STRONGER BLOOD THINNER. THIS WILL BE PROVIDED AT DISCHARGE. * CALL IF INCREASED PAIN, REDNESS, DRAINAGE OR FEVER GREATER THAT 101. * WEAR ELISEO HOSE 20 HOURS PER DAY FOR 2 WEEKS. * EVER dressing - This is a large suction dressing covering your incision. This will help pull any excess drainage from the wound and allow your incision to heal properly. You may shower with this if you can keep the unit outside of the shower. If any bleeding or leakage is noted please call your doctor's office. This will remain on your incision for 7 days and then should be removed. This can be done yourself or by the home nursing staff if applicable. The entire unit is disposable once removed. Once removed, keep incision clean and dry. If redness or drainage is noted, please call your surgeon. . FOLLOW UP VISIT: If appointment is not already scheduled: Please call [facility] to make a follow-up appointment for 2 weeks after your surgery at . Prescriptions: New acetaminophen [Pain Reliever] 500 mg Tablet 1,000 mg PO Q8 14 Days Qty: 84 RF: 0 oxycodone 5 mg Tablet 5 - 10 mg PO Q6H PRN (Reason: pain) Qty: 30 RF: 0 sennosides [Senokot] 8.6 mg Tablet 17.2 mg PO HS Qty: 30 RF: 0 cefadroxil 500 mg capsule 500 mg PO BID Qty: 28 RF: 1 Continued multivitamin Tablet 1 tab PO QAM RF: 0 atorvastatin 10 mg Tablet 10 mg PO QPM RF: 0 warfarin 2.5 mg Tablet 6 mg PO WK RF: 0 clopidogrel [Plavix] 75 mg Tablet 75 mg PO QAM RF: 0 aspirin [Aspirin Low Dose] 81 mg Tablet,Delayed Release (Dr/Ec) 81 mg PO QPM RF: 0 warfarin 4 mg Tablet 4 mg PO 6XWK RF: 0 cholecalciferol (vitamin D3) 1,000 unit Capsule 2,000 unit PO BID RF: 0 cinnamon bark [Cinnamon] 500 mg Capsule 1 tab PO QAM RF: 0 modesto [id number] 250-40-125 mg-mg-unit Tablet 1 tab PO BID RF: 0 metoprolol tartrate 37.5 mg Tablet 37.5 mg PO BID RF: 0 magnesium 250 mg Tablet 250 mg PO HS RF: 0 Discontinued hydrocodone-acetaminophen 5-325 mg tablet 1 - 2 tab PO Q4H PRN (Reason: Pain) Qty: 20 RF: 0 Stand-Alone Forms: [employer] [facility] [employer]/Other Patient Handouts: Prediabetes, Diabetes Meal Planning Discharge Orders: Discharge Order (Routine); Ordered 12/18/18 Ordered By: Kuldip Bassett Admission Data Admit Date/Time: 12/17/18 13:46 Attending Provider: Yeyo Harris Admit Provider: Yeyo Harris Primary Care Provider: Josi Chavez Service: Medical Other Interventions: Discharge Summary Assessment (RN) Last Done: 12/18/18 13:39
== END 2018-12-18 17:18 | disposition home health service (06) | DRG 468 ==
LOC: ASU 09:51 → 3E 13:46

== ENCOUNTER 2024-11-03 09:31 | Observation (INO) ==
--- NOTE | 2024-10-02 14:05 | PAT Medication Instructions ---
Medication Instructions Date of Service October 02, 2024 Home Medications Medication Instructions Recorded hydroxychloroquine 200 mg tablet 200 mg PO BID #180 tabs 09/15/24 aspirin 81 mg tablet,delayed release (Augusto Low Dose Aspirin) 81 mg PO Q2D cholecalciferol (vitamin D3) 25 mcg (1,000 unit) capsule 4,000 unit PO BID metoprolol tartrate 37.5 mg tablet 37.5 mg PO BID apixaban 5 mg tablet (Eliquis) 5 mg PO BID multivitamin 1 tab PO QAM sennosides 8.6 mg tablet (Senokot) 17.2 mg PO HS PRN Constipation GoLo 1 tab PO TID weight loss diclofenac sodium 1 % topical gel 2 g topical QID PRN Pain rosuvastatin 40 mg tablet 20 mg PO QPM magnesium 2 tab PO QAM duloxetine 30 mg capsule,delayed release 30 mg PO QAM hydrocodone 5 mg-acetaminophen 325 mg tablet 1 tab PO Q6H PRN pain hydroxychloroquine 200 mg tablet 200 mg PO BID Black Elderberry 1 tab PO DAILY anastrozole 1 mg tablet 1 mg PO QAM hydroxychloroquine 200 mg tablet 200 mg PO BID ASK your prescriber and surgeon aspirin 81 mg tablet,delayed release (Augusto Low Dose Aspirin) 81 mg PO Q2D hydroxychloroquine 200 mg tablet 200 mg PO BID anastrozole 1 mg tablet 1 mg PO QAM hydroxychloroquine 200 mg tablet 200 mg PO BID apixaban 5 mg tablet (Eliquis) 5 mg PO BID (From anesthesia perspective, apixaban/Eliquis needs to be stopped 72 hours/3 days before surgery. Please check if okay with doctor that prescribes this to you) STOP taking 2 weeks before surgery (or as soon as possible if surgery is within 2 weeks) GoLo 1 tab PO TID weight loss Black Elderberry 1 tab PO DAILY STOP taking 24 hours before surgery diclofenac sodium 1 % topical gel 2 g topical QID PRN Pain DO NOT take the morning of surgery cholecalciferol (vitamin D3) 25 mcg (1,000 unit) capsule 4,000 unit PO BID multivitamin 1 tab PO QAM sennosides 8.6 mg tablet (Senokot) 17.2 mg PO HS PRN Constipation magnesium 2 tab PO QAM Take morning of surgery With a small sip of water, OTHERWISE NOTHING TO EAT OR DRINK AFTER MIDNIGHT: metoprolol tartrate 37.5 mg tablet 37.5 mg PO BID duloxetine 30 mg capsule,delayed release 30 mg PO QAM hydrocodone 5 mg-acetaminophen 325 mg tablet 1 tab PO Q6H PRN pain (if needed) Take evening before surgery cholecalciferol (vitamin D3) 25 mcg (1,000 unit) capsule 4,000 unit PO BID metoprolol tartrate 37.5 mg tablet 37.5 mg PO BID sennosides 8.6 mg tablet (Senokot) 17.2 mg PO HS PRN Constipation (if needed) rosuvastatin 40 mg tablet 20 mg PO QPM hydrocodone 5 mg-acetaminophen 325 mg tablet 1 tab PO Q6H PRN pain (if needed) Other Notes If you have any questions please call us at [phone] or [phone] or [phone] or [phone]
--- NOTE | 2024-10-14 13:07 | Anesthesiology Consultation ---
Date of Service October 14, 2024 Assessment & Plan (1) Encounter for pre-operative examination: - Infectious disease screening: Per assessment on 10/14/24- No known recent infectious disease contacts or current infectious disease symptoms. - Outpatient joint assessment: Pt currently scheduled for inpatient pathway. If surgeon requests review for outpatient joint pathway, patient is not recommended candidate for outpatient joint program from anesthesia standpoint based on available information. - S/P Right Total Knee Poly Exchange (12/17/18): SAB at L3-4 + regional at [facility] - Eliquis instructions: patient made aware that for neuraxial anesthesia, Eliquis needs to be held 72 hours prior to surgery. Patient voiced understanding/will check if okay with prescriber. - Cardiology visit (03/21/24): "Coronary artery disease.. Normal nuke stress 2019, reports she had no anginal C/L prior to requiring cardiac testing, currently with no anginal C/O.. Cardiac murmurlikely mild aortic stenosis, will check echo to assess.. Essential hypertension.. Benign essential. Controlled on exam today. Continue current care.. Atrial fibrillation.. Continue Eliquis and metoprolol." > Echo performed 04/2024- mild aortic stenosis noted. Chart Review Chart Review: Acceptable Risk for Surgery and Patient seen in Pre Admission Testing Teaching & Discussion Pre-Anesthesia Teaching/Discussion Notes: Instructed NPO after midnight before surgery,except medications with 15 cc of water. Medication instructions provided according to the PAT guidelines. History Surgery Operation Date: 11/03/24 08:15 Proposed Procedures p Right Anterior Total Hip Arthroplasty - Crispin Sheldon, Height/Weight Height: 5 ft 3 in Weight: 90.265 kg Allergies Allergy/AdvReac Type Severity Reaction Status Date / Time Iodinated Contrast Media AdvReac Mild Facial Verified 10/09/24 12:00 flushing Medications Home Medications Medication Instructions Recorded Confirmed Last Taken aspirin 81 mg tablet,delayed 81 mg PO Q2D 07/07/18 10/02/24 01/07/23 20:00 release (Augusto Low Dose Aspirin) cholecalciferol (vitamin D3) 25 4,000 unit PO BID 07/07/18 10/02/24 01/08/23 20:00 mcg (1,000 unit) capsule metoprolol tartrate 37.5 mg tablet 37.5 mg PO BID 0910/02/24 01/09/23 06:30 apixaban 5 mg tablet (Eliquis) 5 mg PO BID 11/06/19 10/02/24 01/09/23 06:30 multivitamin 1 tab PO QAM 06/15/20 10/02/24 01/05/23 07:00 sennosides 8.6 mg tablet (Senokot) 17.2 mg PO HS PRN Constipation 06/15/20 10/02/24 01/07/23 16:00 GoLo 1 tab PO TID weight loss 06/20/22 10/02/24 01/05/23 07:00 diclofenac sodium 1 % topical gel 2 g topical QID PRN Pain 06/20/22 10/02/24 01/08/23 07:00 rosuvastatin 40 mg tablet 20 mg PO QPM 08/28/22 10/02/24 01/08/23 20:00 duloxetine 30 mg capsule,delayed 30 mg PO QAM 08/16/23 10/02/24 Unknown release hydrocodone 5 mg-acetaminophen 325 1 tab PO Q6H PRN pain 08/16/23 10/02/24 Unknown mg tablet hydroxychloroquine 200 mg tablet 200 mg PO BID #180 tabs 09/15/24 10/02/24 Unknown Black Elderberry 1 tab PO DAILY 10/02/24 10/02/24 Unknown anastrozole 1 mg tablet 1 mg PO QAM 10/02/24 10/02/24 Unknown hydroxychloroquine 200 mg tablet 200 mg PO BID 10/02/24 10/02/24 Unknown magnesium 420 mg PO DAILY 10/14/24 10/14/24 Unknown Past Medical History Medical History Aortic stenosis Echo 04/2024: Mild aortic stenosis. FLORIAN 2.0 cm, MG 7.34 mmHg. Atrial fibrillation Follows with Dr. Hughes/José Miguel cardio Taking Eliquis CAD (coronary artery disease) EUSEBIO x3 (2017) Chronic knee pain Gait abnormality Hernia of abdominal cavity History of meningioma s/p surgery (~2011) HTN (hypertension) Hx of breast cancer 2023 recurrence- s/p bilat mastectomy (06/2024), oral chemo and 2009- s/p radiation and surgery - no chemo Hx pulmonary embolism 2007- postop a. fib and subsequent PE after hemicolectomy Taking Eliquis Hyperlipidemia Kidney cyst, acquired Right cyst - monitoring Kidney stones Per records Leg length discrepancy Lumbar radicular pain Obesity Osteoarthritis Peripheral neuropathy PMR (polymyalgia rheumatica) Sleep apnea CPAP Exercise / Class Metabolic Activity III < 4 Walking/Shop/Light housework (uses cane) Past Family History Family History Other No family history of adverse response to anesthesia Past Surgical History Surgical History H/O nephrolithotomy with removal of calculi Left side ([facility]) H/O: hysterectomy Lap Robotic Hyster with BSO History of bilateral tubal ligation History of bowel resection for benign tumor History of cataract surgery R/L History of cystoscopy History of heart artery stent 2018- stents x3 History of lithotripsy History of partial mastectomy of right breast History of tonsillectomy History of total knee replacement Right History of total left knee replacement (TKR) Hx of bilateral mastectomy (06/2024) [facility] Hx of brain surgery R/t benign menigonoma Hx of cardiac catheterization 2018- stents x3 Hx of colonoscopy S/P knee surgery Right Total Knee Poly Exchange (12/17/18): SAB at L3-4 + regional at [facility] Past Anesthesia History No Hx of Anesthesia Complications and No Family Hx of Anesthesia Complications History of PONV No Hx of PONV and No Hx of Motion Sickness Social History Smoking Status: Never smoker Do You Dip or Chew Tobacco: No Hx Alcohol Use: Yes Alcohol type: wine alcohol intake frequency: a few times a month Hx Substance Use: No substance use type: does not use Review of Systems Patient denies chest pain, shortness of breath, fever, chills, cough, wheezing, palpitations. Physical Exam Vital Signs BP 100/63 P 68 TEMP 98.2 SP02 95%RA RESP 16 Physical Mildly decreased cervical extension range of motion. Full TMJ range of motion. TMD 3 finger breaths Mallampati Score IV (small oral opening) Dentition: missing sides/molars, lower front partial Lungs: clear throughout to auscultation Cardiac: regular rate and rhythm, II/ systolic murmur Spine: normal Carotid arteries: negative bruit Extremities: no LE edema Lab Results Anesthesia Preop Results Results Anesthesia Widget: WBC 6.86 K/ul (4.8-10.8) 10/14/24 Hgb 12.8 g/dl (12.0-16.0) 10/14/24 Hct 39.6 % (37.0-47.0) 10/14/24 Plt 282 K/uL (130-400) 10/14/24 Na 140 mmol/L (136-145) 10/14/24 K 3.9 mmol/L (3.5-5.1) 10/14/24 Cl 104 mmol/L (98-107) 10/14/24 CO2 32 mmol/L (21-32) 10/14/24 BUN 15 mg/dl (6-23) 10/14/24 Creat 0.67 mg/dl (0.6-1.2) 10/14/24 Glucose Level 129 mg/dl (70-99(Fasting)) H 10/14/24 PT 11.0 Seconds (9.0-12.0) 10/14/24 PTT 27 Seconds (21-31) 10/14/24 INR 1.0 (0.9-1.1) 10/14/24 Blood Type B Positive 10/14/24 Antibody Screen NEGATIVE 10/14/24 Testing Laboratory Results 01/01/23= WBC: 6.99 H/H: 12.5/40.6 PLATELETS: 316 SODIUM: 141 POTASSIUM: 4.2 CHLORIDE: 110 CO2: 27.3 BUN: 14.7 CREATININE: 0.64 GLUCOSE: 119 12/19/22= URINE CULTURE: 3 types of organisms present, all high counts probable skin adi Electrocardiogram Date: 06/24/24 SB at 56bpm. "Otherwise normal ECG" Chest X-Ray Date: 10/14/24 FINDINGS: Heart size and pulmonary vasculature are normal. No effusion or consolidation. IMPRESSION: No acute findings. Echocardiogram Date: 04/07/24 EF 55-60%. Mild aortic stenosis. FLORIAN 2.0 cm, MG 7.34 mmHg. Moderate MR. Mild TR. Grade 1 diastolic dysfunction. Stress Test Date: 12/03/19 normal myocardial perfusion SPECT images without evidence for pharmacologically induced ischemia. Normal LV wall motion and thickening. Normal LV ejection fraction post-rest at 82%. Cardiac Catheterization Date: 10/31/17 LM= 0-10% disease LAD= 50-60%, followed by 70% stenosis LCx= 0-10% disease RCA= 0-10% disease LVEF normal at 55% Impression- moderate to severe mid LAD stenosis. Successful direct stenting of the mid LAD with 3 EUSEBIO's
[~2024-11-03 09:31] MED LIST changes: -ACETAMINOPHEN 500 MG TAB PO SCH; -BUPIVACAINE 0.5 % 5 MG/1 ML PF 10ML VIAL ONE; -CEFAZOLIN 2000MG 2,000 MG/15 ML SYR IV SCH; -CeleBREX 200 MG CAP PO SCH; -FAMOTIDINE 20 MG TAB PO SCH; -GABAPENTIN 300 MG PO SCH; -LR 500ML BOLUS, THEN 15ML/HR IV SCH; -ROPIVACAINE 0.5% HCL/PF 150 MG, BUPIVACAINE 0.5% MPF 30 ML, EPINEPHrine 30MG/30ML (OR U... INFIL SCH; -TRANEXAMIC ACID 1,000 MG **IV Pre-op IV SCH; -dexAMETHasone 4 MG TAB PO SCH
--- NOTE | 2024-11-03 10:15 | History & Physical Bridge Note ---
Date of Service November 03, 2024 History & Physical Bridge Note I have examined the patient, reviewed the History & Physical and in the interval since the performance of the History & Physical I have noted the following changes of clinical significance: no changes noted
[2024-11-03] MEDS: LR 500ML BOLUS, THEN 15ML/HR IV SCH (10:21)
[2024-11-03] MEDS: dexAMETHasone**PF** 10 MG/ML VIAL IV SCH (10:22)
[2024-11-03] MEDS: ACETAMINOPHEN 500 MG TAB PO SCH ×2 (10:22→15:14)
[2024-11-03] MEDS: GABAPENTIN 300 MG CAP PO SCH (10:22)
[2024-11-03] MEDS: LR 60ML/HR IV SCH (10:22)
[2024-11-03] MEDS: FAMOTIDINE 20 MG TAB PO SCH (10:22)
[2024-11-03] MEDS ORDERED: PROPOFOL IV EMULSION 10 MG/ML 20 ML VIAL IV ONE ×2 (10:43→10:49)
[2024-11-03] MEDS ORDERED: MIDAZOLAM HCL 1 MG/ML 2ML VIAL ONE (10:44)
[2024-11-03] MEDS ORDERED: fentaNYL citrate PF 100 MCG/2 ML VIAL ONE (10:44)
[2024-11-03] MEDS ORDERED: LIDOCAINE 2% 2 ML VIAL/AMP(20MG/ML) INFIL ONE (10:49)
[2024-11-03] MEDS ORDERED: PHENYLEPHRINE HCL 10 MG/ML VIAL ONE (10:49)
[2024-11-03] MEDS ORDERED: ePHEDrine sulfate 50 MG/ML AMP IV PRN (10:51)
[2024-11-03] MEDS ORDERED: ONDANSETRON INJ 2 MG/ML 2 ML VIAL IV PRN ×2 (10:51→14:34)
[2024-11-03] MEDS ORDERED: KETOROLAC 30 MG/ML VIAL IV PRN (10:51)
[2024-11-03] MEDS ORDERED: ATROPINE SULFATE 0.1 MG/ML 10ML SYR IV PRN (10:51)
[2024-11-03] MEDS ORDERED: HYDROmorphone INJ 1 MG/ML SYRINGE IV PRN (10:51)
[2024-11-03] MEDS: TRANEXAMIC ACID 1,000 MG **IV Pre-op IV SCH (11:10)
[2024-11-03] MEDS: ceFAZolin 2000MG 2,000 MG/15 ML SYR IV SCH ×2 (11:20→17:18)
[2024-11-03] MEDS ORDERED: ONDANSETRON INJ 2 MG/ML 2 ML VIAL ONE (11:31)
[2024-11-03] MEDS: ORTHO JOINT ANESTHETIC ONE ×2 (11:54)
[2024-11-03] MEDS: ROPIV 0.5% 246mg, Ketorolac 30mg, EPINEPHrine 0.5mg in NSS INFIL SCH (12:06)
[2024-11-03] MEDS: TRANEXAMIC ACID 1,000 MG **IV Intra-op IV SCH (12:25)
--- NOTE | 2024-11-03 12:30 | Operative Report ---
PG Post Operative Report Pre & Post Diagnosis Operation Date: 11/03/24 11:00 Pre-Op Diagnosis: osteoarthritis of right hip Post-Op Diagnosis: osteoarthritis of right hip I identified the patient and participated in the time-out.: Yes Procedure Operation Date: 11/03/24 11:00 Actual Procedures p Right Anterior Total Hip Arthroplasty(Right) - Crispin Sheldon DO Surgeon Crispin Sheldon DO Station Installer Guicho Salvador PA-C Estimated Blood Loss 300 Findings Consistent with Post-Op Diagnosis Specimens Right femoral head Description of Procedure Implants used I used a ZimmerBiomet total hip arthroplasty system with a size 3 standard offset Avenir Complete stem, a 50 mm G7 cup with a 25mm screw, an E1 polyethylene liner, a 36 mm ceramic head with a +3.5 neck. Reina arrived at the hospital for the above procedure. She was seen in the preoperative holding area and the operative extremity was identified and signed. She was given a spinal anesthetic, a preoperative antibiotic, and TXA. She was then taken back to the operating room and laid on the table in the supine position. She was given basic sedation. The operative leg was secured to a Puristst leg positioner. The hip was then prepped and draped in sterile fashion. A timeout was done and the patient and the operative extremity was pr operly identified. An anterior approach was used. Dissection was taken down through the fascia and the tensor muscle belly was retracted laterally and the rectus was retracted medially. The circumflex vessels were identified and ligated. The capsule was then incised and tagged for later repair. The femoral neck was then cut and the femoral head was removed. The acetabulum was exposed. Time was spent doing a complete circumferential labral release. Sequential reaming of the acetabulum up to a size 49 reamer was done. Final reamings were done under fluoroscopy to ensure appropriate version. A Biomet 50 mm G7 cup was then impacted into place. A single 25 mm screw was placed. The E1 polyethylene liner was then snapped into place. Surrounding soft tissues were then injected with 100 cc of an orthopedic pain control cocktail. The proximal femur was then exposed. Sequential broaching up to a size 3 broach was done. Off that broach a size 36 head with a +3.5 neck was trialed. The hip was reduced and fluoroscopic images showed anatomic alignment of the implants in acceptable length. The broach was removed. The final size 3 standard offset Avenir Complete stem was then impacted into place. A ceramic 36 mm head with a +3.5 neck was then impacted onto the stem and the hip was reduced. Final fluoroscopic images showed anatomic alignment of the hip. The capsule was then closed with #1 Vicryl suture. A dilute betadyne lavage was then done for 3 minutes. The joint was then irrigated with normal saline solution. The fascia was closed with #1 PDS suture. Skin was closed with 2-0 Vicryl, esther, and a Silverlon dressing. She was then transferred to a hospital bed and taken to the post anesthesia care unit in stable condition. She tolerated the procedure well. Guicho Salvador PA-C, was present for the entire procedure. He was critical for patient positioning, prepping, draping, retraction exposure, wound closure and application of sterile dressing. I attest to the content of the Intraoperative Record and any orders documented therein. Any exceptions are noted below.
--- NOTE | 2024-11-03 12:44 | Fluoroscopy Report ---
FL hip RT 1V CLINICAL HISTORY: RIGHT ANTERIOR HIP COMPARISON STUDY: Right hip radiographs July 29, 2024. FLUOROSCOPY TIME: 12 seconds. Ka,r: 1.6834 mGy FLUOROSCOPIC IMAGES: 1 FINDINGS: Fluoroscopy was provided during anterior total right hip arthroplasty. Alignment is anatomi c. There are no unexpected radiopaque foreign bodies. No fractures are identified by fluoroscopy. IMPRESSION: Fluoroscopy provided during total anterior right hip arthroplasty. ACT 112: Negative or not required by law. Electronically signed by: James Cabrera M.D. 11/03/2024 12:42 PM
--- NOTE | 2024-11-03 13:25 | Anesthesiology Progress Note ---
Date of Service November 03, 2024 Anesthesia Post Procedure Vital Signs Vital Signs: Temp Pulse Pulse Resp BP Pulse Ox O2 Del Method 11/03/24 13:20 36.4 C L 75 18 132/71 95 Room Air 11/03/24 13:10 76 14 129/74 98 Oxymask 11/03/24 13:00 76 16 132/68 100 Oxymask 11/03/24 12:53 36.3 C L 81 13 130/69 99 Oxymask 11/03/24 10:40 37 C 60 18 143/72 H 97 Room Air O2 Flow Rate 11/03/24 13:20 11/03/24 13:10 2 11/03/24 13:00 4 11/03/24 12:53 6 11/03/24 10:40 Transfer of Care Handoff Completed per policy Notes Mental Status: alert / awake / arousable Patient Amnestic to Procedure: Yes Nausea / Vomiting: adequately controlled Pain: adequately controlled Airway Patency, RR, SpO2: stable & adequate BP & HR: stable & adequate Hydration State: stable & adequate Neuraxial Anesthesia: was administered and sensory block is resolving Anesthetic Complications: no major complications apparent
--- NOTE | 2024-11-03 13:34 | XRay Report ---
XR hip 1V RT w pelvis CLINICAL HISTORY: Postoperative evaluation. COMPARISON: Right hip radiograph July 29, 2024. FINDINGS: Alignment of the total right hip is anatomic. There is no periprosthetic fracture or unexp ected radiopaque foreign body. There are skin esther. IMPRESSION: Expected findings following total right hip arthroplasty. ACT 112: Negative or not required by law. Electronically signed by: James Cabrera M.D. 11/03/2024 1:33 PM
[2024-11-03] MEDS ORDERED: HYDROmorphone INJ 0.5 MG/0.5 ML SYR IV PRN (14:34)
[2024-11-03] MEDS ORDERED: bisacodyL 10 MG SUPP PR PRN (14:34)
[2024-11-03] MEDS ORDERED: NALOXONE HCL 0.4 MG/1 ML VIAL/CARP IV PRN (14:34)
[2024-11-03] MEDS ORDERED: METOCLOPRAMIDE HCL INJ 5 MG/ML 2 ML VIAL IV PRN (14:34)
[2024-11-03] MEDS ORDERED: MAGNESIUM HYDROXIDE SUSP 30 ML UDC PO PRN (14:34)
[2024-11-03] MEDS: KETOROLAC TROMETHAMINE 15 MG/ML VIAL IV SCH (17:18)
[2024-11-03] MEDS: HYDROXYCHLOROQUINE SULFATE 200 MG TAB PO SCH (20:01)
[2024-11-03] MEDS: ROSUVASTATIN CALCIUM 20 MG TAB PO SCH (20:01)
[2024-11-03] MEDS: METOPROLOL TARTRATE 25 MG TAB PO SCH (20:02)
[2024-11-03] MEDS: SENNA 8.6 MG TAB PO SCH (20:05)
[2024-11-03] MEDS: DOCUSATE SODIUM 100 MG CAP PO SCH (20:05)
[2024-11-04 02:14] VITALS: O2SAT 95
[2024-11-04] MEDS: dexAMETHasone 4 MG TAB PO SCH (07:39)
[2024-11-04] MEDS: APIXABAN 5 MG TABLET PO SCH (07:40)
[2024-11-04] MEDS: oxyCODONE HCL IR 5 MG TAB (IMMEDIATE RELEASE) PO PRN (07:40)
[2024-11-04] MEDS: DULoxetine HCL 30 MG CAP PO SCH (07:41)
[2024-11-04] MEDS: ASPIRIN 81 MG ECTAB PO SCH (07:41)
[2024-11-04] MEDS: MULTIVITAMIN TAB PO SCH (07:42)
[2024-11-04 07:44] VITALS: BP 113/70; PULSE 68; RESP 16; TEMP 98.6
[2024-11-04] MEDS: ANASTROZOLE 1 MG TAB PO SCH (08:11)
[2024-11-04] MEDS: traMADol HCL 50 MG TABLET PO PRN (10:55)
--- NOTE | 2024-11-04 12:55 | Orthopedic Progress Note ---
Date of Service November 04, 2024 Assessment & Plan (1) Status post right hip replacement: Assessment: Status post right anterior total hip arthroplasty. Plan: Overall, she is doing quite well today with good pain control right hip. She will work with physical therapy later this morning to work on ambulation and range of motion exercises. She was restarted today on her Eliquis for DVT prophylaxis. She can be discharged home later this morning pending formal physical therapy evaluation recommendations. She will follow-up with orthopedics in 2 weeks for postoperative management or sooner if needed. Her dressing should remain on for 7 days. She verbalized understanding and agrees with this plan. Subjective . Reina was seen this morning resting comfortably in no apparent distress. She has been up and ambulating with no significant issues. She states that her pain is well-controlled the right hip. She has yet to be seen by physical therapy this morning. She denies any concerns with her surgical incision site. She denies any active bleeding, discharge, or signs of infection. She denies any low back pain, distal extremity pain, numbness/ting, or paresthesias. She denies any other concerns today. Review of Systems All systems reviewed & are unremarkable except as noted in HPI & below. Physical Exam . On physical examination of the right hip, her dressings are clean, dry, and intact with no signs of active bleeding, discharge, or signs of infection. Her leg is out in full extension. She has limited range of motion secondary to postoperative stiffness and soreness. Calf soft nontender to palpation. Negative Homans' sign. Intact plantarflexion and dorsiflexion to the right ankle. +2 DP and PT pulses. Less than 2-second capillary refill. Normal sensation. Neurovascular intact. Results & Data Results & Data Laboratory Results . Diagnostic Findings . Hip X-Ray 11/03/24 11:00 FL hip RT 1V CLINICAL HISTORY: RIGHT ANTERIOR HIP COMPARISON STUDY: Right hip radiographs July 29, 2024. FLUOROSCOPY TIME: 12 seconds. mague Dsouza: 1.6834 mGy FLUOROSCOPIC IMAGES: 1 FINDINGS: Fluoroscopy was provided during anterior total right hip arthroplasty. Alignment is anatomic. There are no unexpected radiopaque foreign bodies. No fractures are identified by fluoroscopy. IMPRESSION: Fluoroscopy provided during total anterior right hip arthroplasty. ACT 112: Negative or not required by law. Electronically signed by: James Cabrera M.D. 11/03/2024 12:42 PM Hip/Pelvis X-Ray 11/03/24 12:57 XR hip 1V RT w pelvis CLINICAL HISTORY: Postoperative evaluation. COMPARISON: Right hip radiograph July 29, 2024. FINDINGS: Alignment of the total right hip is anatomic. There is no perip rosthetic fracture or unexpected radiopaque foreign body. There are skin esther. IMPRESSION: Expected findings following total right hip arthroplasty. ACT 112: Negative or not required by law. Electronically signed by: James Cabrera M.D. 11/03/2024 1:33 PM PG Care Time/CCT Total # of Minutes Spent Total Time Spent with Patient: Total time spent is greater than 50% in coordination of care (as documented) at patient's floor/unit and/or counseling patient: Coding Level of Care Code 20021 Post Operative Follow-Up Diagnoses Status post right hip replacement Z96.641
--- NOTE | 2024-11-04 12:56 | Discharge Summary ---
Date of Service November 04, 2024 Principal Diagnosis Same as "Discharge Diagnosis" noted below under Discharge Instructions. Discharge Exam . On physical examination of the right hip, her dressings are clean, dry, and intact with no signs of active bleeding, discharge, or signs of infection. Her leg is out in full extension. She has limited range of motion secondary to postoperative stiffness and soreness. Calf soft nontender to palpation. Negative Homans' sign. Intact plantarflexion and dorsiflexion to the right ankle. +2 DP and PT pulses. Less than 2-second capillary refill. Normal sensation. Neurovascular intact. Discharge Data Procedures Performed Operation Date: 11/03/24 11:00 Actual Procedures p Right Anterior Total Hip Arthroplasty(Right) - Crispin Sheldon DO Ordered Studies 11/03/24 11:00 FL hip RT 1V Routine Hospital Course (1) Status post right hip replacement: On November 03, 2024 Reina arrived at [facility] and underwent a right anterior total hip arthroplasty performed by Dr. Sheldon with no complications. She had a spinal anesthetic. Postoperatively, she was transferred to the PACU for immediate postoperative management and then transferred to the general orthopedic floor in stable condition. Her hospital course was uneventful. On postoperative day #1, her vital signs are stable and her pain was well-controlled. 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 She participated well with physical therapy working on ambulation and range of motion exercises. She was then discharged home in stable condition. She will follow-up with orthopedics in 2 weeks for continued postoperative management. PG Care Time/CCT Total # of Minutes Spent Total Time Spent with Patient: Total time spent is greater than 50% in coordination of care (as documented) at patient's floor/unit and/or counseling patient: Discharge Plan Discharge Items Patient Disposition: Home - Home Health Services Reason For Visit: Degenerative Joint Disease Right Hip Discharge Diagnosis: Same Activity: Per Instructions section Non-emergency contact: Surgeon Call non-emergency contact if: your temperature is above 101.5, your wound has increased redness, your wound has increased drainage and your wound pain has increased Follow-up/Referrals: Josi Chavez MD [Primary Care Provider] - Diet: Regular Addtl Attending Provider Instructions: Activity and Therapy Recommendations: * If you are using [facility] then therapy will be provided at your home until they feel you have accomplished all of your goals. * If you are using [facility] then Physical Therapy will be provided until they feel you are ready to start Outpatient Physical Therapy. * If you are not using home therapy then Outpatient Physical Therapy should start about 3-5 days from your day of surgery. Therapy will last about 6-10 weeks * You were shown a series of exercises in the hospital. Do these exercises three times each day including the exercises you were shown in physical therapy. * Get up and walk several times each day.~ For the first four weeks, try not to stand or walk for more than one hour at a time. If you do stand or walk for more than one hour, you will not hurt anything, but your leg will likely swell.~~ * As you feel comfortable, you may change from the walker or crutches to a cane and~then to independent walking. Medications: * Narcotic You will likely be sent home from the hospital with a prescription for the narcotic pain medication that worked best throughout your stay. * Cefadroxil -take the antibiotic twice a day for 10 days to help prevent infection. * Continue taking your Eliquis as prescribed. * Other medications may be prescribed for specific circumstances. If you have any questions, please call the office at . * Resume previous home medications unless otherwise instructed TEDs/Elastic Stockings: The white elastic stockings help limit swelling and prevent blood clots from forming in your legs. The more you wear them, the more they work. Wear them for six weeks. Dressing Care: Leave the Silverlon dressing in place for 7 days. After 7 days you may remove the dressing. If the incision is not draining then you may leave the esther open to air. If there is a little bit of drainage or if the esther are getting stuck on your clothing then cover the incision with a dry dressing. The esther will be removed at your 2 week follow-up appointment. Showering: You may shower with the Silverlon dressing in place. Do not let the shower spray hit the dressing directly. Pat the Silverlon dressing dry. If the dressing becomes wet underneath, then simply remove the dressing. Keep the incision dry until you are 7 days out from the day of surgery. After 7 days you may remove the Silverlon dressing and shower with the esther exposed. Let soapy water run over the esther and pat them dry. Do not scrub or soak the incision. Diet: You may resume your previous diet. Things To Watch For: * Drainage from the incision site that occurs more than one week after your surgery. * Increased redness at the incision site. * Fever above 102 degrees Fahrenheit. * Unusual chest pain or shortness of breath. * Call [facility] at with any of the above marci lara Follow-Up Visit: Follow-up with Dr. Sheldon's office 2-3 weeks after your day of surgery. We will remove your esther and answer any questions. If you have any additional questions or concerns, Dr Sheldon is usually in the office at the same time and will be available An appointment was probably scheduled when you signed-up for surgery in the office. If you have any questions call Office Instructions: More detailed instructions as well as Frequently Asked Questions were provided in a folder by our office when you signed-up for surgery. Please review these instructions when you get home. If you have any further questions or concerns, please feel free to call the office at [phone] Pending Studies at Discharge: No Stand-Alone Forms: My [facility], Smoking Cessation Medications and DC Order Prescriptions: New oxycodone 5 mg Tablet 5 mg PO Q6H PRN (Reason: pain) Qty: 30 0RF cefadroxil 500 mg capsule 500 mg PO BID 10 Days Qty: 20 0RF Continued diclofenac sodium 1 % gel 2 g topical QID PRN (Reason: Pain) Rx Instructions: knees GoLo 1 tab PO TID rosuvastatin 40 mg tablet 20 mg PO QPM Eliquis 5 mg tablet 5 mg PO BID duloxetine 30 mg capsule,delayed release(DR/EC) 30 mg PO QAM aspirin [Augusto Low Dose Aspirin] 81 mg Tablet,Delayed Release (Dr/Ec) 81 mg PO Q2D cholecalciferol (vitamin D3) 1,000 unit Capsule 4,000 unit PO BID metoprolol tartrate 37.5 mg Tablet 37.5 mg PO BID multivitamin Tablet 1 tab PO QAM sennosides [Senokot] 8.6 mg tablet 17.2 mg PO HS PRN (Reason: Constipation) Rx Instructions: HOLD FOR LOOSE STOOLS. CAN BUY OTC. Black Elderberry 1 tab PO DAILY anastrozole 1 mg Tablet 1 mg PO QAM hydroxychloroquine 200 mg Tablet 200 mg PO BID magnesium 420 mg PO DAILY Discontinued hydrocodone-acetaminophen 5-325 mg tablet 1 tab PO Q6H PRN (Reason: pain) Admission Data Admit Date/Time: 11/03/24 12:57 Attending Provider: Crispin Sheldon Admit Provider: Crispin Sheldon Primary Care Provider: Josi Chavez Other Interventions: Discharge Summary Assessment (RN) Last Done: 11/04/24 10:17
== END 2024-11-04 12:39 | disposition home health service (06) ==
LOC: 3W 09:31 → ASU 09:31